=== PATIENT | male | born 1950 | race Caucasian/White ===

== ENCOUNTER 2017-04-24 17:25 | Observation (INO) | payer OTHER ==
[~2017-04-24] VITALS: Ht 177.8 cm; Wt 81.5 kg
[~2017-04-24 17:25] MED LIST: 1-ME1LIQ PO; CYCL100C6 PO; LISI-360 PO; MYCO500T PO; PRED1TAB PO; TRAM100T19 PO; URSO300 PO
[2017-04-24 17:39] VITALS: BP 129/70; PULSE 60; RESP 18; TEMP 98.3; O2SAT 98
[2017-04-24 18:42] LABS: AUTOMATED NEUTROPHIL # 4.2 TH/MM3 (1.8-7.7); BASOPHIL # 0.1 TH/MM3 (0-0.2); BASOPHIL % 0.7 % (0.0-2.0); EOSINOPHIL # 0.2 TH/MM3 (0-0.4); EOSINOPHIL % 2.8 % (0.0-4.0); HEMATOCRIT 41.2 % (39.0-51.0); LYMPH % 35.4 % (9.0-44.0); LYMPHOCYTE # 3.1 TH/MM3 (1.0-4.8); MEAN CELL VOLUME 92.7 FL (80.0-100.0); MEAN CORPUSCULAR HEMOGLOBIN 31.5 PG (27.0-34.0); MEAN PLATELET VOLUME 8.6 FL (7.0-11.0); MONO % 12.4 % (0.0-8.0); MONOCYTE # 1.1 TH/MM3 (0-0.9); NEUT % 48.7 % (16.0-70.0); PLATELET COUNT 180 TH/MM3 (150-450); RED BLOOD COUNT 4.44 MIL/MM3 (4.50-5.90); RED CELL DISTRIBUTION WIDTH 13.7 % (11.6-17.2); WHITE BLOOD COUNT 8.7 TH/MM3 (4.0-11.0)
[2017-04-24 19:01] LABS: BICARBONATE 22.1 MEQ/L (21.0-32.0); BLOOD UREA NITROGEN 31 MG/DL (7-18); CALCIUM 8.5 MG/DL (8.5-10.1); CHLORIDE 109 MEQ/L (98-107); CREATININE 1.74 MG/DL (0.60-1.30); GLOMERULAR FILTRATION RATE 40 ML/MIN (>89); GLUCOSE,RANDOM 98 MG/DL (74-106); SODIUM (NA) 139 MEQ/L (136-145)
[2017-04-24 19:06] LABS: TROPONIN I LESS THAN 0.02 NG/ML (0.02-0.05)
[2017-04-24] MEDS ORDERED: SODIUM POLYSTYRENE SULFONATE SUSP 15 GM/60 ML CUP PO ONE (20:30)
--- NOTE | 2017-04-24 20:30 | PD ---
HPI Chief Complaint: Abnormal Results Time Seen by Provider: 20:06 Travel History International Travel<30 days: No Contact w/Intl Traveler<30days: No History of Present Illness HPI Patient is a 67-year-old male presenting to the emergency department for evaluation of abnormal labs. Patient states he was sent by his primary doctor for hyperkalemia. Patient states he had routine labs on , they were repeated today when the potassium level was elevated again he was called to come to the emergency department. Patient has no physical complaints. He does report decreased water intake lately. Patient has a history of atrial fibrillation, aortic regurgitation, liver transplant which was done in [place] in 2010. Patient is now followed at [facility]. Patient is on cyclosporine. [facility]LY [facility] Past Medical History Atrial Fibrillation: Yes Diminished Hearing: No Hypertension: Yes Medical other: Yes (Liver transplant) Immunizations Current: Yes Past Surgical History Other Surgery: Yes (LIVER TRANSPLANT 2010, TURP) Social History Alcohol Use: No Tobacco Use: No Substance Use: No Allergies-Medications (Allergen,Severity, Reaction): Coded Allergies: No Known Allergies (Unverified , 03/23/15) Reported Meds & Prescriptions Reported Meds & Active Scripts Active Reported Cyclosporine 100 Mg Cap 100 Mg PO DAILY Tramadol HCl ER (Tramadol HCl) 100 Mg Tab 100 Mg PO Q12H PRN Actigall (Ursodiol) 300 Mg Cap 300 Mg PO BID Prednisone 1 Mg Tab 5 Mg PO DAILY Mycophenolate Mofetil 500 Mg Tab 1,000 Mg PO DAILY Lisinopril 10 mg (Lisinopril) 10 Mg Tab 1 Tab PO DAILY Amlodipine Besylate 10 mg (Amlodipine Besylate) 10 Mg Tab 10 Mg PO DAILY Review of Systems Except as stated in HPI: all other systems reviewed are Neg Physical Exam Narrative GENERAL: Well-developed, well-nourished, well-appearing male. Presenting in no acute distress. SKIN: Warm and dry. HEAD: Atraumatic. Normocephalic. EYES: Pupils equal and round. No scleral icterus. No injection or drainage. ENT: No nasal bleeding or discharge. Mucous membranes pink and moist. NECK: Trachea midline. No JVD. CARDIOVASCULAR: Regular rate and rhythm. 3/6 systolic murmur RESPIRATORY: No accessory muscle use. Clear to auscultation. Breath sounds equal bilaterally. GASTROINTESTINAL: Abdomen soft, non-tender, nondistended. Hepatic and splenic margins not palpable. MUSCULOSKELETAL: Extremities without clubbing, cyanosis, or edema. No obvious deformities. NEUROLOGICAL: Awake and alert. No obvious cranial nerve deficits. Motor grossly within normal limits. Five out of 5 muscle strength in the arms and legs. Normal speech. PSYCHIATRIC: Appropriate mood and affect; insight and judgment normal. Data Data Last Documented VS Vital Signs Date Time Temp Pulse Resp B/P (MAP) Pulse Ox O2 Delivery O2 Flow Rate FiO2 04/24/17 17:39 98.3 60 18 129/70 (89) 98 Orders Orders Electrocardiogram (04/24/17 17:43) Complete Blood Count With Diff (04/24/17 17:43) Basic Metabolic Panel (Bmp) (04/24/17 17:43) Ckmb (Isoenzyme) Profile (04/24/17 17:43) Troponin I (04/24/17 17:43) CKMB (04/24/17 18:10) CKMB% (04/24/17 18:10) Sodium Polysty Sulfate Liq (Kayexalate L (04/24/17 20:30) Labs Laboratory Tests Test 04/24/17 18:10 White Blood Count 8.7 TH/MM3 Red Blood Count 4.44 MIL/MM3 Hemoglobin 14.0 GM/DL Hematocrit 41.2 % Mean Corpuscular Volume 92.7 FL Mean Corpuscular Hemoglobin 31.5 PG Mean Corpuscular Hemoglobin Concent 34.0 % Red Cell Distribution Width 13.7 % Platelet Count 180 TH/MM3 Mean Platelet Volume 8.6 FL Neutrophils (%) (Auto) 48.7 % Lymphocytes (%) (Auto) 35.4 % Monocytes (%) (Auto) 12.4 % Eosinophils (%) (Auto) 2.8 % Basophils (%) (Auto) 0.7 % Neutrophils # (Auto) 4.2 TH/MM3 Lymphocytes # (Auto) 3.1 TH/MM3 Monocytes # (Auto) 1.1 TH/MM3 Eosinophils # (Auto) 0.2 TH/MM3 Basophils # (Auto) 0.1 TH/MM3 CBC Comment DIFF FINAL Differential Comment Blood Urea Nitrogen 31 MG/DL Creatinine 1.74 MG/DL Random Glucose 98 MG/DL Calcium Level 8.5 MG/DL Sodium Level 139 MEQ/L Potassium Level 5.9 MEQ/L Chloride Level 109 MEQ/L Carbon Dioxide Level 22.1 MEQ/L Anion Gap 8 MEQ/L Estimat Glomerular Filtration Rate 40 ML/MIN Total Creatine Kinase 145 U/L Creatine Kinase MB 1.7 NG/ML Troponin I LESS THAN 0.02 NG/ML MDM Medical Decision Making Medical Screen Exam Complete: Yes Emergency Medical Condition: Yes Interpretation(s) Laboratory Tests Test 04/24/17 18:10 White Blood Count 8.7 TH/MM3 Red Blood Count 4.44 MIL/MM3 Hemoglobin 14.0 GM/DL Hematocrit 41.2 % Mean Corpuscular Volume 92.7 FL Mean Corpuscular Hemoglobin 31.5 PG Mean Corpuscular Hemoglobin Concent 34.0 % Red Cell Distribution Width 13.7 % Platelet Count 180 TH/MM3 Mean Platelet Volume 8.6 FL Neutrophils (%) (Auto) 48.7 % Lymphocytes (%) (Auto) 35.4 % Monocytes (%) (Auto) 12.4 % Eosinophils (%) (Auto) 2.8 % Basophils (%) (Auto) 0.7 % Neutrophils # (Auto) 4.2 TH/MM3 Lymphocytes # (Auto) 3.1 TH/MM3 Monocytes # (Auto) 1.1 TH/MM3 Eosinophils # (Auto) 0.2 TH/MM3 Basophils # (Auto) 0.1 TH/MM3 CBC Comment DIFF FINAL Differential Comment Blood Urea Nitrogen 31 MG/DL Creatinine 1.74 MG/DL Random Glucose 98 MG/DL Calcium Level 8.5 MG/DL Sodium Level 139 MEQ/L Potassium Level 5.9 MEQ/L Chloride Level 109 MEQ/L Carbon Dioxide Level 22.1 MEQ/L Anion Gap 8 MEQ/L Estimat Glomerular Filtration Rate 40 ML/MIN Total Creatine Kinase 145 U/L Creatine Kinase MB 1.7 NG/ML Troponin I LESS THAN 0.02 NG/ML Vital Signs Date Time Temp Pulse Resp B/P (MAP) Pulse Ox O2 Delivery O2 Flow Rate FiO2 04/24/17 17:39 98.3 60 18 129/70 (71) 98 Differential Diagnosis Metabolic abnormality versus acute on chronic renal insufficiency versus medication side effects versus other Narrative Course Patient is a well-appearing 67-year-old male sent by primary doctor for elevated potassium level. Patient's vital signs are stable. Patient was protocoled while in triage. Labs resulted, potassium is 5.9, BUN/creatinine elevated 31/1.74. Patient was given 30 g of Kayexalate p.o. Initial EKG shows sinus bradycardia with a rate of 49, mild peaked T waves. Discussed with Dr. Cosby, he accepted admission. Admit orders placed. Patient is agreeable. Diagnosis Primary Impression: Hyperkalemia Additional Impression: Acute renal insufficiency Admitting Information Admitting Physician Requests: Observation Condition: Stable Ana Weaver Apr 24, 2017 20:30
[2017-04-24] MEDS ORDERED: CYCL25CA4 PO (20:38)
[2017-04-24] MEDS ORDERED: TYLE325T PO (20:38)
[2017-04-24] MEDS ORDERED: LISI-515 PO (20:38)
[2017-04-24] MEDS ORDERED: TRAM50TA PO (20:38)
--- NOTE | 2017-04-24 20:44 | PD ---
Physical Exam Date Seen by Provider: Apr 24, 2017 Time Seen by Provider: 19:30 Narrative I, Dr. Mccabe, have reviewed the advance practice practitioner's documentation and am in agreement, met with the patient face to face, made the diagnosis, and the medical decision making was done by me. *My assessment and Findings: Patient seen and evaluated with PA, please see PA note for further details. He has elevated potassium levels with peak T waves on EKG. Creatinine appears to be baseline for him, he is on cyclosporine. However, he admits that he has been juicing with carrots and apples in the last few days. It is unclear whether this is related or not. However, he will need treatment for his hyperkalemia. He was given calcium gluconate in the ER, and Kayexalate was given as well. At this point, we will hold the Lasix for now because of his creatinines and the fact that he is on cyclosporine already. Plan to admit for further treatment. Case is discussed with Dr. Cosby for admission. EKG shows sinus bradycardia with a rate of 50 bpm. No signs of acute ST depressions but he does have peak T waves concerning for hyperkalemia. Laboratory Tests Test 04/24/17 18:10 Red Blood Count 4.44 MIL/MM3 (4.50-5.90) Monocytes (%) (Auto) 12.4 % (0.0-8.0) Monocytes # (Auto) 1.1 TH/MM3 (0-0.9) Blood Urea Nitrogen 31 MG/DL (7-18) Creatinine 1.74 MG/DL (0.60-1.30) Potassium Level 5.9 MEQ/L (3.5-5.1) Chloride Level 109 MEQ/L (98-107) Estimat Glomerular Filtration Rate 40 ML/MIN (>89) Troponin I LESS THAN 0.02 NG/ML Data Data Last Documented VS Vital Signs Date Time Temp Pulse Resp B/P (MAP) Pulse Ox O2 Delivery O2 Flow Rate FiO2 04/24/17 17:39 98.3 60 18 129/70 (89) 98 Orders Orders Electrocardiogram (04/24/17 17:43) Complete Blood Count With Diff (04/24/17 17:43) Basic Metabolic Panel (Bmp) (04/24/17 17:43) Ckmb (Isoenzyme) Profile (04/24/17 17:43) Troponin I (04/24/17 17:43) CKMB (04/24/17 18:10) CKMB% (04/24/17 18:10) Sodium Polysty Sulfate Liq (Kayexalate L (04/24/17 20:30) Place In Observation (04/24/17 ) Vital Signs (Adult) JOE.Q4H (04/24/17 20:30) Activity Oob Ad Nata (04/24/17 20:30) Scd Bilateral/Knee High JOE.QSHIFT (04/24/17 20:30) Diet Heart Healthy (04/25/17 Breakfast) Basic Metabolic Panel (Bmp) (04/25/17 06:00) Admit Order (Ed Use Only) (04/24/17 20:30) Sodium Chlor 0.9% 1000 Ml Inj (Ns 1000 M (04/24/17 20:45) Labs Laboratory Tests Test 04/24/17 18:10 White Blood Count 8.7 TH/MM3 Red Blood Count 4.44 MIL/MM3 Hemoglobin 14.0 GM/DL Hematocrit 41.2 % Mean Corpuscular Volume 92.7 FL Mean Corpuscular Hemoglobin 31.5 PG Mean Corpuscular Hemoglobin Concent 34.0 % Red Cell Distribution Width 13.7 % Platelet Count 180 TH/MM3 Mean Platelet Volume 8.6 FL Neutrophils (%) (Auto) 48.7 % Lymphocytes (%) (Auto) 35.4 % Monocytes (%) (Auto) 12.4 % Eosinophils (%) (Auto) 2.8 % Basophils (%) (Auto) 0.7 % Neutrophils # (Auto) 4.2 TH/MM3 Lymphocytes # (Auto) 3.1 TH/MM3 Monocytes # (Auto) 1.1 TH/MM3 Eosinophils # (Auto) 0.2 TH/MM3 Basophils # (Auto) 0.1 TH/MM3 CBC Comment DIFF FINAL Differential Comment Blood Urea Nitrogen 31 MG/DL Creatinine 1.74 MG/DL Random Glucose 98 MG/DL Calcium Level 8.5 MG/DL Sodium Level 139 MEQ/L Potassium Level 5.9 MEQ/L Chloride Level 109 MEQ/L Carbon Dioxide Level 22.1 MEQ/L Anion Gap 8 MEQ/L Estimat Glomerular Filtration Rate 40 ML/MIN Total Creatine Kinase 145 U/L Creatine Kinase MB 1.7 NG/ML Troponin I LESS THAN 0.02 NG/ML [facility] Medical Record Reviewed: Yes Supervised Visit with NUSRAT: Yes Diagnosis Primary Impression: Hyperkalemia Additional Impression: Acute renal insufficiency Admitting Information Admitting Physician Requests: Admit Condition: Stable Donn Mccabe MD Apr 24, 2017 20:44
[2017-04-24] MEDS ORDERED: CALCIUM GLUCONATE INJ 1 GM in DEXTROSE 5% IN WATER 100ML INJ 100 ML IV ONE ×2 (20:45)
[2017-04-24] MEDS ORDERED: ONDANSETRON HCL 4 MG/2 ML VIAL IV PUSH PRN (20:45)
[2017-04-24 20:55] VITALS: BP 144/71; PULSE 51; RESP 18; O2SAT 99
[2017-04-24] MEDS: SODIUM CHLOR 0.9% 1000 ML INJ 1,000 ML IV SCH (23:45)
[2017-04-24 23:49] VITALS: BP 116/63; PULSE 58; RESP 18; TEMP 97.8; O2SAT 97
[2017-04-25 03:11] VITALS: BP 125/64; PULSE 60; RESP 18; TEMP 97.9; O2SAT 99
[2017-04-25 05:31] LABS: BICARBONATE 22.9 MEQ/L (21.0-32.0); CALCIUM 7.9 MG/DL (8.5-10.1); CREATININE 1.6 MG/DL (0.60-1.30)
[2017-04-25] MEDS: SODIUM CHLOR 0.9% 1000 ML INJ 1,000 ML IV SCH (06:46)
[2017-04-25 07:26] VITALS: BP 154/71; PULSE 52; RESP 18; TEMP 97.5; O2SAT 96
[2017-04-25] MEDS ORDERED: URSO300C2 PO (07:55)
[2017-04-25] MEDS ORDERED: OMEP20TA93 PO (07:56)
[2017-04-25] MEDS ORDERED: ROSU1TAB4 PO (08:13)
--- NOTE | 2017-04-25 08:14 | HHI.HP ---
HPI Service [facility] Hospitalists Primary Care Physician Dee Cabrera MD Admission Diagnosis HYPERKALEMIA, JÚNIOR Chief Complaint: Hyperkalemia Travel History International Travel<30 Days: No Contact w/Intl Traveler <30 Da: No Traveled to Known Affected Are: No History of Present Illness Mr. Andrea is a pleasant 67 y/o WM with hx of ESLD s/p liver transplant in 2010 , aortic regurgitation, arthritis, CKD stage 3 and BPH who was sent to the ED for evaluation of abnormal labs. Patient follows at [facility] for his liver transplant and is on Cyclosporine 50mg po BID. Patient states he was sent by his primary doctor for hyperkalemia. He had routine labs on , they were repeated on Thursday when the potassium level was elevated again he was called and referred to the emergency department. Patient has no physical complaints. He does report decreased water intake lately. He also reports that he has been drinking more apple juice and carrot juice more recently. Pts labs in the ED noted K+ 5.9, Cr 1.74, GFR 40. EKG in the ED noted sinus bradycardia with a rate of 50 bpm and some peaked T waves concerning for hyperkalemia. Pt was given Kayexalate in the ED and IVF. Repeat labs this morning noted improvement in his potassium to 5.3, Cr 1.60, GFR 44. Pt is anxious for discharge this morning. Denies any abdominal pain, nausea/vomiting, chest pain, palpitations, dizziness, weakness, headache or SOB. Review of Systems Constitutional: DENIES: Fever, Chills Ears, nose, mouth, throat: DENIES: Throat pain, Running Nose Respiratory: DENIES: Cough, Shortness of breath Cardiovascular: DENIES: Chest pain, Palpitations, Lower Extremity Edema Gastrointestinal: DENIES: Abdominal pain, GERD, Nausea, Vomiting Genitourinary: DENIES: Hematuria, Dysuria Musculoskeletal: DENIES: Neck pain Integumentary: DENIES: Rash Neurologic: DENIES: Headache, Localized weakness, Speech Problems Psychiatric: DENIES: Confusion Past Family Social History Past Medical History Hx of Hepatitis C and ESLD s/p liver transplant in 2010 Valvular heart disease, aortic valve GERD Arthritis Chronic back pain CKD, stage 3 (Labs in 11/2016, Cr 1.98, BUN 29, GFR 35) Skin cancer removed lately Past Surgical History Liver transplant in 2010 Hip replacement in 2013 TURP Reported Medications Omeprazole 20 Mg Tab 20 Mg PO DAILY Ursodiol 300 Mg Cap 300 Mg PO TID Tylenol (Acetaminophen) 325 Mg Tab 600 Mg PO Q6H PRN Tramadol (Tramadol HCl) 50 Mg Tab 50 Mg PO Q4H PRN Lisinopril 20 Mg Tab 20 Mg PO HS Cyclosporine 25 Mg Cap 50 Mg PO BID Taken at 0600 and 2100 Allergies: Coded Allergies: No Known Allergies (Unverified Allergy, Unknown, 04/24/17) Family History Noncontributory Social History Denies any tobacco or illicit drug use 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 HEENT: Atraumatic. Normocephalic. No temporal or scalp tenderness. No scleral icterus. Airway patent. NECK: Trachea midline, supple, nontender. CARDIO: Regular 4/6 OLU RESP: CTA bilaterally. No wheezes, rales, or rhonchi. ABD: +BS, soft, non-tender, nondistended. EXT: Extremities without clubbing, cyanosis, or edema. NEURO: Awake and alert. Motor and sensory grossly within normal limits. Normal speech. Laboratory Laboratory Tests Test 04/24/17 18:10 04/25/17 04:53 White Blood Count 8.7 Red Blood Count 4.44 Hemoglobin 14.0 Hematocrit 41.2 Mean Corpuscular Volume 92.7 Mean Corpuscular Hemoglobin 31.5 Mean Corpuscular Hemoglobin Concent 34.0 Red Cell Distribution Width 13.7 Platelet Count 180 Mean Platelet Volume 8.6 Neutrophils (%) (Auto) 48.7 Lymphocytes (%) (Auto) 35.4 Monocytes (%) (Auto) 12.4 Eosinophils (%) (Auto) 2.8 Basophils (%) (Auto) 0.7 Neutrophils # (Auto) 4.2 Lymphocytes # (Auto) 3.1 Monocytes # (Auto) 1.1 Eosinophils # (Auto) 0.2 Basophils # (Auto) 0.1 CBC Comment DIFF FINAL Differential Comment Blood Urea Nitrogen 31 27 Creatinine 1.74 1.60 Random Glucose 98 123 Calcium Level 8.5 7.9 Sodium Level 139 141 Potassium Level 5.9 5.3 Chloride Level 109 113 Carbon Dioxide Level 22.1 22.9 Anion Gap 8 5 Estimat Glomerular Filtration Rate 40 44 Total Creatine Kinase 145 Creatine Kinase MB 1.7 Troponin I LESS THAN 0.02 Result Diagram: 04/24/17 1810 04/25/17 0453 Caprini VTE Risk Assessment Caprini VTE Risk Assessment: Mod/High Risk (score >= 2) Caprini Risk Assessment Model Point Value = 1 Point Value = 2 Point Value = 3 Point Value = 5 Age 41-60 Minor surgery BMI > 25 kg/m2 Swollen legs Varicose veins or History of unexplained or recurrent spontaneous Oral contraceptives or hormone replacement Sepsis (< 1 month) Serious lung disease, including pneumonia (< 1 month) Abnormal pulmonary function Acute myocardial infarction Congestive heart failure (< 1 month) History of inflammatory bowel disease Medical patient at bed rest Age 61-74 Arthroscopic surgery Major open surgery (> 45 min) Laparoscopic surgery (> 45 min) Malignancy Confined to bed (> 72 hours) Immobilizing plaster cast Central venous access Age >= 75 History of VTE Family history of VTE Factor V Leiden Prothrombin [id number] Lupus anticoagulant Anticardiolipin antibodies Elevated serum homocysteine Heparin-induced thrombocytopenia Other congenital or acquired thrombophilia Stroke (< 1 month) Elective arthroplasty Hip, pelvis, or leg fracture Acute spinal cord injury (< 1 month) Prophylaxis Regimen Total Risk Factor Score Risk Level Prophylaxis Regimen 0-1 Low Early ambulation 2 Moderate Order ONE of the following: *Sequential Compression Device (SCD) *Heparin 5000 units SQ BID 3-4 Higher Order ONE of the following medications: *Heparin 5000 units SQ TID *Enoxaparin/Lovenox 40 mg SQ daily (WT < 150 kg, CrCl > 30 mL/min) *Enoxaparin/Lovenox 30 mg SQ daily (WT < 150 kg, CrCl > 10-29 mL/min) *Enoxaparin/Lovenox 30 mg SQ BID (WT < 150 kg, CrCl > 30 mL/min) AND/OR *Sequential Compression Device (SCD) 5 or more Highest Order ONE of the following medications: *Heparin 5000 units SQ TID (Preferred with Epidurals) *Enoxaparin/Lovenox 40 mg SQ daily (WT < 150 kg, CrCl > 30 mL/min) *Enoxaparin/Lovenox 30 mg SQ daily (WT < 150 kg, CrCl > 10-29 mL/min) *Enoxaparin/Lovenox 30 mg SQ BID (WT < 150 kg, CrCl > 30 mL/min) AND *Sequential Compression Device (SCD) Assessment and Plan Problem List: (1) Hyperkalemia ICD Codes: E87.5 - Hyperkalemia Status: Acute Plan: - Pt is a 67 y/o WM with hx of ESLD s/p liver transplant in 2010, aortic regurgitation, arthritis, CKD stage 3 and BPH who was sent to the ED for evaluation of abnormal labs. - Patient was sent by his primary doctor for hyperkalemia. He had routine labs on , they were repeated on Thursday when the potassium level was elevated again he was called and referred to the emergency department. - He does report decreased water intake lately. He also reports that he has been drinking more apple juice and carrot juice more recently. - Pts labs in the ED noted K+ 5.9, Cr 1.74, GFR 40. EKG in the ED noted sinus bradycardia with a rate of 50 bpm and some peaked T waves concerning for hyperkalemia. - No new medication changes, he has been on Lisinopril for many years - Pt was given Kayexalate in the ED and IVF. - Repeat labs this morning noted improvement in his potassium to 5.3, Cr 1.60, GFR 44 - Pt is anxious for discharge today. - Pt is to avoid drinking the extra carrot and apple juice and increase water intake - Pt to have repeat labs early next week and is to followup with his PCP, Dr. Cabrera, after his labs are done next week - Pt given a handout on high potassium foods to avoid (2) CKD (chronic kidney disease) stage 3, GFR 30-59 ml/min ICD Codes: N18.3 - Chronic kidney disease, stage 3 (moderate) Plan: - Labs are improved from admission - Repeat labs next week with results to Dr. Cabrera (3) Hx of liver transplant ICD Codes: Z94.4 - Liver transplant status Status: Chronic Plan: - Cyclosporine resumed (4) Hyperlipidemia ICD Codes: E78.5 - Hyperlipidemia, unspecified Status: Chronic Plan: - Home meds resumed (5) GERD (gastroesophageal reflux disease) ICD Codes: K21.9 - Gastro-esophageal reflux disease without esophagitis Status: Chronic Plan: - PPI Assessment and Plan Patient examined. Assessment and plan formulated with Alisha Bean PA-C. I agree with the above. sent in by pcp for k 6. In ED 5.9. kayexalate given and ivf and k now 5.3. cr was slighly higher than baseline. pt says he had changed his diet and appeared a little dehydrated. cr trending down. WAnts to go home. f/u pcp this week for recheck k. also if rising again might need to hold kady. Alisha Bean Apr 25, 2017 08:14 Giovanni Cosby MD Apr 25, 2017 12:11
--- NOTE | 2017-04-25 08:40 | HHI.DCPOC ---
Discharge Care Plan Diagnosis: (1) Hyperkalemia (2) CKD (chronic kidney disease) stage 3, GFR 30-59 ml/min (3) GERD (gastroesophageal reflux disease) (4) Hyperlipidemia (5) Hx of liver transplant Goals to Promote Your Health * To prevent worsening of your condition and complications * To maintain your health at the optimal level Directions to Meet Your Goals Take your medications as prescribed Follow your dietary instruction Follow activity as directed Keep your appointments as scheduled Take your immunizations and boosters as scheduled If your symptoms worsen call your PCP, if no PCP go to Urgent Care Center or Emergency Room Smoking is Dangerous to Your Health. Avoid second hand smoke Call the 24-hour hour crisis hotline for domestic abuse at Alisha Bean Apr 25, 2017 08:40
[2017-04-25] MEDS ORDERED: PANTOPRAZOLE SOD 20 MG DELAYED RELEASE TAB PO SCH (09:00)
[2017-04-25] MEDS ORDERED: URSODIOL 300 MG CAP PO SCH (09:00)
[2017-04-25] MEDS ORDERED: cycloSPORINE 25 MG CAP PO SCH (09:00)
[2017-04-25] MEDS ORDERED: ATORVASTATIN 10 MG TAB PO SCH (09:00)
[2017-04-25] MEDS ORDERED: LISINOPRIL 20 MG TAB PO SCH (21:00)
--- NOTE | 2017-04-26 00:12 | EKG ---
Date Performed: 04/24/2017 Time Performed: 18:06:27 PTAGE: 67 years EKG: SINUS BRADYCARDIA BORDERLINE ECG NO PREVIOUS TRACING DOCTOR: Devonte Lord Interpretating Date/Time 04/26/2017 00:11:19
== END 2017-04-25 09:45 | disposition home or self-care (01) ==
LOC: NEPE 17:25 → NEDA 20:32 → NEPHCDU 22:00
PROVIDERS: ADMIT Hospitalist; ATTEND Hospitalist
DX: E87.5 Hyperkalemia (principal); K72.90 Hepatic failure, unspecified without coma; E86.0 Dehydration; N17.9 Acute kidney failure, unspecified; R00.1 Bradycardia, unspecified; I12.9 Hypertensive chronic kidney disease with stage 1 through stage 4 chronic kidney disease, or unspecified chronic kidney disease; N18.3 Chronic kidney disease, stage 3 (moderate); I35.1 Nonrheumatic aortic (valve) insufficiency; E78.5 Hyperlipidemia, unspecified; B19.20 Unspecified viral hepatitis C without hepatic coma; K21.9 Gastro-esophageal reflux disease without esophagitis; M54.9 Dorsalgia, unspecified; G89.29 Other chronic pain; N40.0 Benign prostatic hyperplasia without lower urinary tract symptoms; M19.90 Unspecified osteoarthritis, unspecified site; Z94.4 Liver transplant status; Z79.899 Other long term (current) drug therapy; Z85.828 Personal history of other malignant neoplasm of skin
CPT/HCPCS: 80048; 82550; 82552; 84484; 85025; 93005; 96361; 96365; 96375; 99285; G0378; J0610; J2405; J7030